=== PATIENT | female | born 1955 | race Caucasian/White ===

== ENCOUNTER 2019-07-21 07:30 | Outpatient (CLI) | payer OTHER, SELFPAY ==
--- NOTE | ~2019-07-21 | US_ITS ---
EXAMINATION: US right upper quadrant DATE: 07/21/2019 08:05 INDICATION: Right upper quadrant abdominal pain. TECHNIQUE: Multiple grayscale and Doppler ultrasound images of the abdomen were obtained. COMPARISON: Ultrasound 08/26/2017 FINDINGS: The visualized portions of the head and body of the pancreas are normal. The liver is dereck l without focal lesion. There is normal flow in main portal vein. The gallbladder is normal in size. No gallstones or gallbladder wall thickening. There was no sonographic Hamilton sign. The common duct i s normal and measures 5 mm. IMPRESSION: 1. Normal right upper quadrant ultrasound. Reviewed, dictated and finalized at location A.
== END 2019-07-21 07:31 | disposition home or self-care (01) ==
PROVIDERS: PCP Family Medicine; Visit Provider Family Medicine
DX: R10.11 Right upper quadrant pain (principal)
CPT/HCPCS: 76705

== ENCOUNTER 2019-08-02 07:14 | Outpatient (CLI) | payer OTHER, SELFPAY ==
--- NOTE | ~2019-08-02 | NM_ITS ---
EXAMINATION: NM hepatobiliary wo pharm DATE: 08/02/2019 09:50 INDICATION: Right upper quadrant abdominal pain COMPARISON: None. TECHNIQUE: 5.13 mCi Tc-99m mebrofenin (Choletec) was administered intravenously. Scintigraphic image s of the abdomen were obtained for one hour. At the 1 hour time point, the patient drank 8 oz Ensure, and imaging was continued for 60 minutes. Gallbladder ejection fraction was calculated by the techno logist. FINDINGS: There is normal clearance of radiotracer from the blood pool. There is homogeneous tracer u ptake by the liver. Activity progresses to the bowel and gallbladder. The gallbladder ejection fract ion (GBEF) is 72%. Note that with this technique, normal GBEF >= 33%. IMPRESSION: 1. Normal hepatobiliary scan. Reviewed, dictated and finalized at location A.
== END 2019-08-02 07:15 | disposition home or self-care (01) ==
PROVIDERS: PCP Family Medicine; Visit Provider Family Medicine
DX: R10.11 Right upper quadrant pain (principal); R11.0 Nausea
CPT/HCPCS: 78226; A9537

== ENCOUNTER 2019-08-06 08:07 | Outpatient (CLI) | payer OTHER, SELFPAY ==
[2019-08-06 08:21] LABS: Basophils Absolute Auto 0.1 K/mm3 (0.0-0.1); Basophils Percent Auto 1.8 % (0.2-1.2); Eosinophils Absolute Auto 0.6 K/mm3 (0-0.3); Eosinophils Percent Auto 7.9 % (0-4.4); Hematocrit 44.1 % (37.0-47.0); Hemoglobin 14.8 g/dL (12.0-15.0); Immature Granulocyte Absolute 0.02 K/mm3 (0.00-0.031); Immature Granulocyte Percent A 0.3 % (0-0.5); Lymphocytes Absolute Auto 2.52 K/mm3 (0.9-3.2); Lymphocytes Percent Auto 32.3 % (18.3-44.2); Mean Corpuscular HGB Conc 33.6 g/dl (32-36); Mean Corpuscular Hemoglobin 31.7 pg (26-34); Mean Corpuscular Volume 94.4 fl (80-100); Mean Platelet Volume 8.9 fl (7.4-10.4); Monocytes Absolute Auto 0.6 K/mm3 (0.1-0.6); Monocytes Percent Auto 7.4 % (2.6-8.5); Neutrophils Absolute Auto 3.9 K/mm3 (1.3-6.7); Neutrophils Percent Auto 50.3 % (45.5-73.1); Platelet Count Result 379 k/mm3 (150-375); Red Blood Count 4.67 M/mm3 (4.2-5.4); Red Cell Distribution Width 12.3 % (11.5-14.5); White Blood Count 7.8 K/mm3 (4.5-10.0)
[2019-08-06 08:40] LABS: Alanine Aminotransferase 18 U/L (4-35); Albumin Level 4.3 g/dL (3.5-5.1); Alkaline Phosphatase 92 U/L (38-126); Amylase 66 U/L (30-110); Aspartate Amino Transferase 21 U/L (14-36); Bilirubin,Total 0.4 mg/dL (0.2-1.3); Blood Urea Nitrogen 13 mg/dL (7-17); Calcium 9.1 mg/dL (8.4-10.2); Carbon Dioxide 28 mmol/L (22-30); Chloride 104 mmol/L (98-107); Cholesterol 174 mg/dL (0-200); Estimated Glomerular Filt Rate > 60; Glucose 115 mg/dL (65-105); HDL Direct 55 mg/dL; Lipase 64 U/L (23-300); Potassium 4.1 mmol/L (3.4-5.0); Sodium 139 mmol/L (137-145); Triglycerides 82 mg/dL (<150)
[2019-08-06 08:51] LABS: LDL Cholesterol Direct 90 mg/dL
[2019-08-08 21:30] LABS: CRP, High Sensitivity 3.8 mg/L (***)
== END 2019-08-06 08:08 | disposition home or self-care (01) ==
LOC: ANHLAB 08:08
PROVIDERS: PCP Family Medicine; Visit Provider Family Medicine
DX: R10.11 Right upper quadrant pain (principal); R10.13 Epigastric pain; E78.2 Mixed hyperlipidemia
CPT/HCPCS: 36415; 80053; 80061; 82150; 83690; 85025; 86141

== ENCOUNTER → 2021-03-07 01:58 | Outpatient (CLI) | payer OTHER, SELFPAY ==
[2021-03-07 18:14] LABS: SARS-CoV-2 RNA PCR Negative
== END ==
PROVIDERS: PCP Nurse Practitioner Adult Health; Visit Provider Nurse Practitioner Adult Health
DX: R05.9 Cough, unspecified (principal); Z20.822 Contact with and (suspected) exposure to COVID-19
CPT/HCPCS: C9803; U0003; U0005

== ENCOUNTER → 2021-05-10 08:56 | Outpatient (CLI) | payer OTHER, SELFPAY ==
[2021-05-10 18:23] LABS: SARS-CoV-2 RNA PCR Negative
== END ==
PROVIDERS: PCP Nurse Practitioner Adult Health; Visit Provider Nurse Practitioner Adult Health
DX: Z20.822 Contact with and (suspected) exposure to COVID-19 (principal)
CPT/HCPCS: C9803; U0003; U0005

== ENCOUNTER 2023-09-04 07:00 | Outpatient (NON) | payer MEDICARE, SELFPAY | END 2023-09-04 07:01 | disposition home or self-care (01) | PROVIDERS: PCP Family Medicine; Visit Provider Internal Medicine Gastroenterology | DX: D12.8 Benign neoplasm of rectum (principal); Z80.0 Family history of malignant neoplasm of digestive organs | CPT/HCPCS: 88305 ==

== ENCOUNTER 2023-09-04 08:06 | Day surgery (SDC) | payer MEDICARE, SELFPAY ==
[2023-08-12 15:01] VITALS: BMI 30.9
[2023-08-22 10:20] VITALS: BMI 31.6
--- NOTE | 2023-09-03 14:55 | WPDANESEPPF ---
Anes - Initial Pre Proc Eval Procedure: Operation Date: 09/04/23 11:00 Proposed Procedures p Screening Colonoscopy - Blayne Egan MD <Wallace Garza DO - Last Filed: 09/04/23 14:12> Date/Time: 09/03/23 14:55 <Wallace Garza DO - Last Filed: 09/04/23 14:12> Surgeon: Blayne Egan MD <Wallace Garza DO - Last Filed: 09/04/23 14:12> Pre Op Diagnosis: Neoplasm Screening <Wallace Garza DO - Last Filed: 09/04/23 14:12> Patient Data Age: 67 Gender: F Height: 1.6 m Weight: 81 kg <Wallace Garza DO - Last Filed: 09/04/23 14:12> Allergies Allergy/AdvReac Type Severity Reaction Status Date / Time latex AdvReac Mild rash Verified 09/04/23 09:53 soap AdvReac Mild rash Verified 09/04/23 09:53 <Wallace Garza DO - Last Filed: 09/04/23 14:12> Home Medications Medication Instructions Recorded Confirmed Type ascorbate calcium (vitamin C) 500 500 mg PO DAILY 03/25/22 09/04/23 History mg tablet cholecalciferol (vitamin D3) 25 25 mcg PO DAILY 03/25/22 09/04/23 History mcg (1,000 unit) capsule cranberry 400 mg capsule 400 mg PO DAILY 03/25/22 09/04/23 History vitamin B complex (B 1 tablet PO DAILY 03/25/22 09/04/23 History Complex-Vitamin B12 tablet) vitamin E (dl, acetate) 45 mg (100 45 mg PO DAILY 03/25/22 09/04/23 History unit) capsule <Wallace Garza DO - Last Filed: 09/04/23 14:12> Patient hx anesthesia problems: none <Maria D Montanez CRNA - Last Filed: 09/04/23 11:39> Family hx anesthesia problems: none <Maria D Montanez CRNA - Last Filed: 09/04/23 11:39> Results Review: All pre-operative results and documents have been reviewed as part of the pre-operative evaluation. <Wallace Garza, DO - Last Filed: 09/04/23 14:12> [facility] Past Medical History Medical History: Medical History Chronic left hip pain Degenerative joint disease (DJD) of lumbar spine Seasonal allergies Tobacco use disorder <Wallace Garza DO - Last Filed: 09/04/23 14:12> Surgical History Surgical History: Surgical History History of D&C (~1981) History of surgery on lower extremity (~1965) S/P - ORIF fracture right tibia and fibula History of tonsillectomy and adenoidectomy (~1964) History of tympanoplasty of right ear (~1965) <Wallace Garza DO - Last Filed: 09/04/23 14:12> Family History Family History: Family History Father Family history of diabetes mellitus in first degree relative, Onset Age: 65 Sibling Diabetes mellitus Hypertension Heart disease <Wallace Garza DO - Last Filed: 09/04/23 14:12> Social History Social History: Social History Social History: Shanice is from her . She had 2 children, one daughter . 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 Smoking packs per day: 0.5 Smoking cigarettes per day: 10.0 Years smoked: 40 Smoking pack-years: 20.00 Smoking status: Current every day smoker Tobacco type: cigarettes Second hand tobacco smoke exposure: Yes Alcohol intake: current Drinks per week: 2 Substance use: never Substance use type: does not use Lack of Transportation: No Lack of Food: Never True Current Housing: Decline to Answer Concerned About Future Housing: No Difficulty Paying Gas/Electric Bills: No Difficulty Paying for Meds: No Currently Unemployed: No Education: Bachelor's Degree Difficulty w/ Childcare or Family Care: No Living arrangements: alone Occupation/Education: retired Gender identity (if verbalized by the patient): Female Spiritual care concerns: No Agre
[2023-09-04 09:58] VITALS: BP 129/60; PULSE 72; RESP 15; TEMP 36.9; O2SAT 98
[2023-09-04] MEDS: LACTATED RINGERS 1,000 ML 150 ML IV CONT (10:05)
--- NOTE | 2023-09-04 10:43 | PM.HPGS ---
History of Present Illness History of Present Illness Consent: Risks, benefits, and alternatives have been discussed and questions answered. Patient agrees to proceed with procedure. Chief complaint: Neoplasm Screening Narrative: Shanice Salazar is a 67 year old female presents for screening colonoscopy. Patient's current weight appetite and bowel movements are normal. She denies abdominal pain. Patient has had no bleeding. Family history is significant that her brother had colon cancer Review of Systems Review of Systems: All systems reviewed & are unremarkable except as noted in HPI and below PMFSH Past Medical History Medical History Chronic left hip pain Degenerative joint disease (DJD) of lumbar spine Seasonal allergies Tobacco use disorder Surgical History Surgical History History of D&C (~1981) History of surgery on lower extremity (~1965) S/P - ORIF fracture right tibia and fibula History of tonsillectomy and adenoidectomy (~1964) History of tympanoplasty of right ear (~1965) Family History Family History Father Family history of diabetes mellitus in first degree relative, Onset Age: 65 Sibling Diabetes mellitus Hypertension Heart disease Social History Social History Social History: Shanice is from her . She had 2 children, one daughter . 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 Smoking packs per day: 0.5 Smoking cigarettes per day: 10.0 Years smoked: 40 Smoking pack-years: 20.00 Smoking status: Current every day smoker Tobacco type: cigarettes Second hand tobacco smoke exposure: Yes Alcohol intake: current Drinks per week: 2 Substance use: never Substance use type: does not use Lack of Transportation: No Lack of Food: Never True Current Housing: Decline to Answer Concerned About Future Housing: No Difficulty Paying Gas/Electric Bills: No Difficulty Paying for Meds: No Currently Unemployed: No Education: Bachelor's Degree Difficulty w/ Childcare or Family Care: No Living arrangements: alone Occupation/Education: retired Gender identity (if verbalized by the patient): Female Spiritual care concerns: No Agree to blood products: Yes Meds Home Medications and Allergies Home Medications Medication Instructions Recorded Confirmed Type ascorbate calcium (vitamin C) 500 500 mg PO DAILY 03/25/22 09/04/23 History mg tablet cholecalciferol (vitamin D3) 25 25 mcg PO DAILY 03/25/22 09/04/23 History mcg (1,000 unit) capsule cranberry 400 mg capsule 400 mg PO DAILY 03/25/22 09/04/23 History vitamin B complex (B 1 tablet PO DAILY 03/25/22 09/04/23 History Complex-Vitamin B12 tablet) vitamin E (dl, acetate) 45 mg (100 45 mg PO DAILY 03/25/22 09/04/23 History unit) capsule Allergies Allergy/AdvReac Type Severity Reaction Status Date / Time latex AdvReac Mild rash Verified 09/04/23 09:53 soap AdvReac Mild rash Verified 09/04/23 09:53 tetnus shot AdvReac Intermediate Rash Uncoded 09/04/23 09:53 Vital Signs Vital Signs - 24 hr 09/04/23 09:58 Temperature 98.5 F Pulse Rate 72 Respiratory Rate 15 Blood Pressure 129/60 Pulse Oximetry 98 Oxygen Delivery Room Air Exam Narrative: Physical exam reveals patient signs stable. HEENT exam is unremarkable. Patient is anicteric. Lungs are clear to auscultation and to percussion. Is without murmur or extra sounds. Abdomen bowel sounds are present soft nontender with no external rectal exam normal. Assessment and Plan Assessment and plan (1) Family hx of colon cancer: Code(s): Z80.0 - Family history of malignant neoplasm of digestive organs Status: Acute
--- NOTE | 2023-09-04 11:39 | P.PNAN_ITS ---
Anes - Eval Final PreProcedure Day of Procedure 09/04/23 11:39 Patient weight: obese Heart: regular rate and rhythm Lungs: clear to auscultation Airway: Mallampati scale class II Neurological: alert and oriented ASA classification: II Emergent: no Anesthetic plan: proceed Anesthesia type and monitoring: general GIVS and standard monitoring Results Review: All pre-operative results and documents have been reviewed as part of the pre- operative evaluation. Informed Consent: The patient's anesthetic plan and its attendant risks and benefits were discussed with the patient/family/POA. Questions were solicited and answers provided to the satisfaction of the patient/family/POA.
[2023-09-04 12:17] VITALS: BP 114/45; PULSE 74; RESP 15; O2SAT 98
[2023-09-04 12:27] VITALS: BP 128/60; PULSE 71; RESP 16; O2SAT 95
[2023-09-04 12:37] VITALS: BP 130/62; PULSE 72; RESP 16; O2SAT 96
--- NOTE | 2023-09-04 14:12 | WPDANESPN ---
Anes - Prog Note Post-Op Date/Time: 09/04/23 14:12 Cardiovascular status: normal Respiratory status: normal Airway patency: baseline Mental status: baseline Post-Op hydration status: normal Vital Signs: Last Vital Signs Temp 36.9 C 09/04/23 09:58 Pulse 72 09/04/23 12:37 Resp 16 09/04/23 12:37 BP 130/62 09/04/23 12:37 Pulse Ox 96 09/04/23 12:37 O2 Del Method Room Air 09/04/23 12:37 Pain Score (VAS): 0 I/O: Intake & Output 09/03/23 09/04/23 09/04/23 23:59 07:59 15:59 Intake Total 600 Balance 600 Post-procedural complaints: none Patient Feedback: Patient satisfied with anesthetic care. Other Findings: Patient vital signs back to baseline. Patient denies nausea and vomiting. Patient's pain under control. Patient OK for discharge.
== END 2023-09-04 12:47 | disposition home or self-care (01) ==
PROVIDERS: PCP Family Medicine; Visit Provider Internal Medicine Gastroenterology
PROC: 0DJD8ZZ Inspection of Lower Intestinal Tract, Via Natural or Artificial Opening Endoscopic (ICD-10-PCS; CPT 45378; principal; 2023-09-04 11:00)
DX: Z80.0 Family history of malignant neoplasm of digestive organs (principal); D12.8 Benign neoplasm of rectum; K57.30 Diverticulosis of large intestine without perforation or abscess without bleeding; K64.8 Other hemorrhoids
CPT/HCPCS: 45385

== ENCOUNTER 2023-09-11 10:27 | Outpatient (CLI) | payer MEDICARE, SELFPAY ==
[2023-09-11 13:26] LABS: Basophils Absolute Auto 0.1 K/mm3 (0.0-0.1); Basophils Percent Auto 1.7 % (0.2-1.2); Eosinophils Absolute Auto 0.6 K/mm3 (0-0.3); Eosinophils Percent Auto 8.2 % (0-4.4); Hematocrit 45.7 % (37.0-47.0); Hemoglobin 15.3 g/dL (12.0-15.0); Immature Granulocyte Absolute 0.02 K/mm3 (0.00-0.031); Immature Granulocyte Percent A 0.3 % (0-0.5); Lymphocytes Absolute Auto 2.47 K/mm3 (0.9-3.2); Lymphocytes Percent Auto 33.2 % (18.3-44.2); Mean Corpuscular HGB Conc 33.5 g/dl (32-36); Mean Corpuscular Hemoglobin 31.9 pg (26-34); Mean Corpuscular Volume 95.4 fl (80-100); Mean Platelet Volume 9.9 fl (7.4-10.4); Monocytes Absolute Auto 0.5 K/mm3 (0.1-0.6); Neutrophils Absolute Auto 3.8 K/mm3 (1.3-6.7); Neutrophils Percent Auto 50.6 % (45.5-73.1); Platelet Count Result 314 k/mm3 (150-375); Red Blood Count 4.79 M/mm3 (4.2-5.4); Red Cell Distribution Width 12.3 % (11.5-14.5); White Blood Count 7.4 K/mm3 (4.5-10.0)
[2023-09-11 13:27] LABS: Alanine Aminotransferase 21 U/L (6-35); Albumin Level 4.4 g/dL (3.5-5.1); Alkaline Phosphatase 81 U/L (38-126); Anion Gap 6 mmol/L (4-12); Aspartate Amino Transferase 48 U/L (14-36); Bilirubin,Total 0.6 mg/dL (0.2-1.3); Blood Urea Nitrogen 17 mg/dL (7-17); Calcium 9.3 mg/dL (8.4-10.2); Carbon Dioxide 24 mmol/L (22-30); Chloride 107 mmol/L (98-107); Cholesterol 204 mg/dL (0-200); Estimated Glomerular Filt Rate > 60; Glucose 108 mg/dL (65-110); HDL Direct 67 mg/dL; Potassium 4.1 mmol/L (3.4-5.0); Sodium 137 mmol/L (137-145); Triglycerides 105 mg/dL (<150)
[2023-09-11 13:38] LABS: LDL Cholesterol Direct 113 mg/dL
[2023-09-11 22:02] LABS: Hemoglobin A1C 5.9 % (<5.7)
== END 2023-09-11 10:28 | disposition home or self-care (01) ==
PROVIDERS: PCP Family Medicine; Visit Provider Nurse Practitioner Family
DX: E78.5 Hyperlipidemia, unspecified (principal); R73.03 Prediabetes; E53.8 Deficiency of other specified B group vitamins; R10.11 Right upper quadrant pain; M25.511 Pain in right shoulder; M47.816 Spondylosis without myelopathy or radiculopathy, lumbar region; S49.91XA Unspecified injury of right shoulder and upper arm, initial encounter; X58.XXXA Exposure to other specified factors, initial encounter; Z13.29 Encounter for screening for other suspected endocrine disorder
CPT/HCPCS: 36415; 80053; 80061; 82607; 83036; 84443; 85025

== ENCOUNTER 2023-09-11 10:43 | Outpatient (CLI) | payer MEDICARE, SELFPAY ==
--- NOTE | ~2023-09-11 | XR_ITS ---
Right Shoulder Technique: AP and scapular Y views were obtained. Clinical History: Injury Findings: No fracture or dislocation is seen. Osseous alignment is anatomic. Mild AC joint degenerati ve change present. Glenohumeral joint intact. Soft tissues are unremarkable. Impression: Mild AC joint degenerative change. Reviewed, dictated and finalized at [facility]. Impression: Mild AC joint degenerative change.
== END 2023-09-11 10:44 ==
LOC: GOSHIMG 10:44
PROVIDERS: PCP Family Medicine; Visit Provider Nurse Practitioner Family
DX: M19.011 Primary osteoarthritis, right shoulder (principal); M47.816 Spondylosis without myelopathy or radiculopathy, lumbar region
CPT/HCPCS: 73030

== ENCOUNTER 2024-03-12 08:57 | Outpatient (CLI) | payer MEDICARE, SELFPAY ==
[2024-03-12 19:30] LABS: Alanine Aminotransferase 25 U/L (6-35); Albumin Level 4.5 g/dL (3.5-5.1); Alkaline Phosphatase 81 U/L (38-126); Anion Gap 7 mmol/L (4-12); Aspartate Amino Transferase 64 U/L (14-36); Bilirubin,Total 0.7 mg/dL (0.2-1.3); Blood Urea Nitrogen 13 mg/dL (7-17); Calcium 9.4 mg/dL (8.4-10.2); Carbon Dioxide 29 mmol/L (22-30); Chloride 102 mmol/L (98-107); Estimated Glomerular Filt Rate > 60; Glucose 90 mg/dL (65-110); Potassium 4.2 mmol/L (3.4-5.0); Sodium 138 mmol/L (137-145)
[2024-03-12 19:51] LABS: Hemoglobin A1C 6.1 % (<5.7)
== END 2024-03-12 08:58 | disposition home or self-care (01) ==
LOC: ANHGOSHLAB 08:59
PROVIDERS: PCP Family Medicine; Visit Provider Family Medicine
DX: R73.03 Prediabetes (principal); I10 Essential (primary) hypertension; R74.01 Elevation of levels of liver transaminase levels
CPT/HCPCS: 36415; 80053; 83036

== ENCOUNTER 2024-03-31 07:16 | Outpatient (CLI) | payer MEDICARE, SELFPAY ==
--- NOTE | ~2024-03-31 | US_ITS ---
Limited Abdominal Sonogram: Real-time sonographic imaging of the right upper quadrant was performed. Clinical History: Right upper quadrant pain Findings: The liver appears normal with no evidence of mass lesion or bile duct dilatation. Main por bhavya vein demonstrates normal direction of flow. The gallbladder is well distended, and appears normal with no evidence of gallstone or wall thickening. The common bile duct measures 6 mm. The visualize d pancreas, aorta, and IVC are unremarkable. Impression: No significant abnormality seen. Reviewed, dictated and finalized at location . ER COACH Impression: No significant abnormality seen.
== END 2024-03-31 07:17 | disposition home or self-care (01) ==
PROVIDERS: PCP Family Medicine; Visit Provider Family Medicine
DX: R10.11 Right upper quadrant pain (principal)
CPT/HCPCS: 76705